=== PATIENT | female | born 1965 | race Caucasian/White ===

== ENCOUNTER 2021-01-15 10:13 | Emergency (ER) | payer OTHER ==
--- NOTE | 2021-01-15 11:50 | NUR ---
1013 PATIENT TO ROOM IMMEDIATELY FROM [facility] FOR BEDSIDE TRIAGE PATIENT STATES HAD HAD SYMPTOMS OF ITCHING, RASH, SOB AND CHEST PAIN AFTER HANDLING A OVERSIZED PACKAGE TO A RESIDENT FROM [facility]. PATIENTS MANAGER INTELLIGENCE AT BEDSIDE STATING THAT SHE HANDLED SAME LETTER 5 DAYS PRIOR WITH SAME SYMPTOMS AFTER HANDLING IT WHICH TODAY HAVE NOW RESOLVED. PATIENTS MANAGER INTELLIGENCE STATED THAT THE PACKAGE AT THAT TIME WAS PLACED UNDER A VILLARREAL AND NO SUSPICOUS ITEMS WERE NOTED. ROOM ISOLATED AND PLACED ON [employer] PRECAUTIONS AND PATIENT BEING PREPARED FOR BIO/CHEMICAL DECON. NOTIFIED OF PATIENT STATUS PATIENT APPEARS IN NO APPARENT DISTRESS. 1045 PATIENT DECONTAMINATION STARTED WITH PRIVACY SCREEN IN PLACE PATIENT TOLERATING WELL. THIS ADMINISTRATION SPECIALIST WEARING APPROPRIATE CHEMICAL PPE ASSISTED PATIENT WITH DECON. PATIENTS CLOTHES PLACED IN BIOHAZARD BAG. 1125 DECON COMPLETE PATIENT PLACED IN NEW CLOTHING, PATIENTS EXAM ROOM DECONTAMINATED PRIOR TO PATIENT BEING PLACED BACK IN ROOM. PATIENT AMBULATED BACK TO ROOM FOR EXAM WITHOUT DIFFICULTY. 1135 PATIENT RESTING AWAITNG LAB AND RADIOLOGY RESULTS. PATIENT STATES ITCHING STOPPED AFTER DECON WAS COMPLETED. NOTIFIED
[2021-01-15 12:03] LABS: HEMATOCRIT 42.5 % (37.0-47.0); HEMOGLOBIN 14.2 g/dl (12.0-16.0); MEAN CELL VOLUME 93.4 fL CALC (80.0-100.0); MEAN CORPUSCULAR HGB 31.2 pG CALC (26.0-32.0); MEAN CORPUSCULAR HGB CONC 33.4 g/dL CAL (32.0-36.0); NEUT# 3.75 thou/uL (2.00-7.15); RED BLOOD COUNT 4.55 mill/uL (4.20-5.60); RED CELL DISTRI WIDTH 12.3 % (11.5-15.5)
[2021-01-15 12:04] LABS: URINE BILIRUBIN - DIPSTICK NEGATIVE (NEGATIVE); URINE BLOOD DIPSTICK NEGATIVE (NEGATIVE); URINE COLOR YELLOW; URINE GLUCOSE - DIPSTICK NEGATIVE (NEGATIVE); URINE KETONE NEGATIVE (NEGATIVE); URINE PROTEIN - DIPSTICK NEGATIVE (NEG-TRACE); URINE SPECIFIC GRAVITY 1.015; URINE UROBILINOGEN - DIPSTICK 0.2 E.U./dL (0.2)
[2021-01-15 12:05] LABS: URINE LEUK ESTERASE SMALL (NEGATIVE); URINE NITRITE - DIPSTICK NEGATIVE (Negative)
[2021-01-15 12:10] LABS: URINE SQUAMOUS EPITHELIAL CELL FEW EPI/hpf (0-FEW)
[2021-01-15 12:40] LABS: ALBUMIN 4.5 g/dL (3.2-5.0); ALKALINE PHOSPHATASE 59 u/l (38-126); ANION GAP 12 (6-22 (CALC)); BILIRUBIN, TOTAL 0.6 mg/dL (0.0-1.4); BUN 11 mg/dL (7-17); BUN/CREATININE RATIO 16 (12-20 (CALC)); CARBON DIOXIDE 24 mmol/l (22-30); CHLORIDE 103 mmol/l (95-108); CREATININE 0.7 mg/dL (0.5-1.0); ETHYL ALCOHOL 0 mg/dl (0-30); GFR > 60 ML/MIN (>=60 (CALC)); GFR FOR AFR.AMER. > 60 ML/MIN (>=60 (CALC)); LIPASE 192 u/l (23-300); POTASSIUM 4.6 mmol/l (3.5-5.1); SGOT/AST 19 u/l (14-36); SODIUM 135 mmol/l (137-146); TOTAL PROTEIN 8.2 g/dL (6.3-8.2)
--- NOTE | 2021-01-15 12:50 | NUR ---
PATIENT RESTING AWAITING LAB AND RADIOLOGY RESULTS. PATIENT STILL HAVING REPORTED MILD CHEST PRESSURE. ITCHING , RASH AND SOB HAVE RESOLVED. MD NOTIFIED OF PATIENT STATUS
--- NOTE | 2021-01-15 13:50 | NUR ---
PATIENT RESTING AWAITING ROOM ASSIGNMENT. PATIENT DENIES ANY ITCHING OR SOB AT THIS TIME
--- NOTE | 2021-01-15 14:50 | NUR ---
Patient resting awaitng room assignment. patient states no chest pain at this time.
--- NOTE | 2021-01-15 15:50 | NUR ---
Patient resting awaiting room assignment. Patient denies any pain, sob, itching or rash at this time. md notified
--- NOTE | 2021-01-15 16:03 | NUR ---
Patient deciding to leave AMA discussed risks versus benefits and patient still wanting to leave at this time.
[2021-01-15 16:09] VITALS: BP 1112/67
--- NOTE | 2021-01-15 16:09 | NUR ---
Patient decides to leave AMA. Multiple attempts made to ecourage patient to remain here for continued treatment. Explained to patient all risks of leaving against medical advice including . Pt verbalized understanding of all risks. Pt also encouraged to return to [facility] at any time, especially if symptoms continue or become worse. Pt verbalized understanding.
== END 2021-01-15 16:09 | disposition left against medical advice (07) | DRG 313 ==
LOC: ED 10:13 → ED-I 11:17 → ED 11:17 → ED-I 13:04 → ED 13:26 → ED-I 13:26 → ED 13:27 → MS2 13:27 → ED 16:09
PROVIDERS: Family Medicine
DX: R07.89 Other chest pain (principal); T78.40XA Allergy, unspecified, initial encounter; E11.9 Type 2 diabetes mellitus without complications; I10 Essential (primary) hypertension; E66.01 Morbid (severe) obesity due to excess calories; F17.200 Nicotine dependence, unspecified, uncomplicated; Y92.149 Unspecified place in prison as the place of occurrence of the external cause; Y99.0 Civilian activity done for income or pay; X58.XXXA Exposure to other specified factors, initial encounter; R82.71 Bacteriuria

== ENCOUNTER 2021-01-16 14:24 | Emergency (ER) | payer OTHER ==
[2021-01-16 15:58] VITALS: BP 156/89
== END 2021-01-16 15:58 | disposition home or self-care (01) | DRG 951 ==
LOC: ED 14:24
DX: Z04.89 Encounter for examination and observation for other specified reasons (principal); I10 Essential (primary) hypertension; E11.9 Type 2 diabetes mellitus without complications